=== PATIENT | male | born 1975 | race Caucasian/White ===

== ENCOUNTER 2024-07-17 12:51 | Observation (INO) | payer OTHER ==
[~2024-07-17] VITALS: Ht 172.7 cm; Wt 86.2 kg
[2024-07-17] MEDS ORDERED: TADALAFIL5 MG PO (14:29)
[2024-07-17 14:30] VITALS: BP 120/83; PULSE 65; RESP 18; TEMP 98.4; O2SAT 98
[2024-07-17] MEDS: LACTATED RINGER'S 1,000 ML INJ SCH (14:48)
[2024-07-17] MEDS ORDERED: LISINOPRIL10 MG PO (15:28)
[2024-07-17] MEDS ORDERED: ONDANSETRON ODT4 MG PO (15:28)
[2024-07-17] MEDS ORDERED: ALLOPURINOL100 MG PO (15:28)
[2024-07-17] MEDS ORDERED: ATORVASTATIN CA20 MG PO (15:28)
[2024-07-17] MEDS: ONDANSETRON HCL INJ 2MG/ML 2ML 2 MG/ML VIAL IV PRN (15:35)
[2024-07-17] MEDS: Morphine 4mg INJECTION 4 MG/ML INJ IV PRN (15:42)
[2024-07-17 16:15] VITALS: BP 120/83; PULSE 65; RESP 18; TEMP 98.4; O2SAT 98
[2024-07-17 20:00] VITALS: BP 123/79; PULSE 58; RESP 18; TEMP 98.3; O2SAT 97
[2024-07-17] MEDS: Morphine 2mg Syringe 2 MG/ML SYR IV PRN (22:22)
[2024-07-17 22:45] VITALS: BP 123/79; PULSE 58; RESP 18; TEMP 98.3; O2SAT 97
[2024-07-18] VITALS (8 sets, daily range): BP systolic 97–127; BP diastolic 60–85; PULSE 60–71; RESP 16–18; TEMP 97.9–98.2; O2SAT 95–98
[2024-07-18 06:30] LABS: BASOPHILS % 0.1 % (0.0-1.0); EOSINOPHILS # (AUTO) 0.2 (0.0-0.4); EOSINOPHILS % 2.5 % (0.0-6.0); HEMATOCRIT 42.3 % (38.2-49.6); HEMOGLOBIN 13.6 g/dL (14.0-18.0); LYMPHOCYTES # (AUTO) 1.4 (1.0-3.2); LYMPHOCYTES % 18.7 % (18.0-39.1); MEAN CORPUSCULAR HEMOGLOBIN 31.3 pg (28-32); MEAN CORPUSCULAR HGB CONC 32.2 g/dL (31-35); MEAN CORPUSCULAR VOLUME 97.2 fL (81-99); MONOCYTES # (AUTO) 0.6 (0.2-0.8); MONOCYTES % 8.2 % (4.4-11.3); NEUTROPHILS # (AUTO) 5.3 (2.1-6.9); NEUTROPHILS % 70.2 % (38.7-80.0); PLATELET COUNT 188 x10e3/uL (140-360); RED BLOOD COUNT 4.35 x10e6/uL (4.3-5.7); RED CELL DISTRIBUTION WIDTH 11.9 % (11.7-14.4); WHITE BLOOD COUNT 7.58 x10e3/uL (4.8-10.8)
[2024-07-18 06:55] LABS: ALBUMIN 3.8 g/dL (3.5-5.0); ALBUMIN/GLOBULIN RATIO 1.3 (0.8-2.0); BILIRUBIN,TOTAL 1.1 mg/dL (0.2-1.2); CALCIUM 9.2 mg/dL (8.4-10.2); CREATININE, SERUM 1.19 mg/dL (0.72-1.25); MAGNESIUM 1.8 MG/DL (1.3-2.1); TOTAL PROTEIN 6.8 g/dL (6.5-8.1)
[2024-07-19] VITALS: BP 112/69; PULSE 62; RESP 17; TEMP 97.8; O2SAT 100
[2024-07-19 04:00] VITALS: BP 120/64; PULSE 67; RESP 17; TEMP 97.5; O2SAT 97
[2024-07-19 06:57] LABS: BASOPHILS % 0.4 % (0.0-1.0); EOSINOPHILS # (AUTO) 0.2 (0.0-0.4); EOSINOPHILS % 3.4 % (0.0-6.0); HEMATOCRIT 40.3 % (38.2-49.6); HEMOGLOBIN 13.3 g/dL (14.0-18.0); LYMPHOCYTES # (AUTO) 1.3 (1.0-3.2); LYMPHOCYTES % 23.2 % (18.0-39.1); MEAN CORPUSCULAR HEMOGLOBIN 31.8 pg (28-32); MEAN CORPUSCULAR VOLUME 96.4 fL (81-99); MONOCYTES # (AUTO) 0.4 (0.2-0.8); MONOCYTES % 7.7 % (4.4-11.3); NEUTROPHILS # (AUTO) 3.6 (2.1-6.9); NEUTROPHILS % 64.8 % (38.7-80.0); PLATELET COUNT 180 x10e3/uL (140-360); RED BLOOD COUNT 4.18 x10e6/uL (4.3-5.7); RED CELL DISTRIBUTION WIDTH 11.9 % (11.7-14.4); WHITE BLOOD COUNT 5.55 x10e3/uL (4.8-10.8)
[2024-07-19 07:18] LABS: ALBUMIN 3.6 g/dL (3.5-5.0); ALBUMIN/GLOBULIN RATIO 1.3 (0.8-2.0); ANION GAP 11.1 mmol/L (8-16); BILIRUBIN,TOTAL 0.7 mg/dL (0.2-1.2); CALCIUM 9.3 mg/dL (8.4-10.2); CREATININE, SERUM 1.11 mg/dL (0.72-1.25); POTASSIUM 4.1 mmol/L (3.5-5.1); TOTAL PROTEIN 6.4 g/dL (6.5-8.1)
[2024-07-19 07:46] VITALS: BP 134/72; PULSE 72; RESP 17; TEMP 98.1; O2SAT 99
[2024-07-19 08:00] VITALS: BP 134/72; PULSE 72; RESP 17; TEMP 98.1; O2SAT 99
[2024-07-19 12:00] VITALS: BP 120/83; PULSE 64; RESP 18; TEMP 98.1; O2SAT 100
== END 2024-07-19 14:23 | disposition home or self-care (01) ==
LOC: MED/SURG3 13:46
PROVIDERS: ADMIT Family Medicine; ATTEND Family Medicine
DX: K56.609 Unspecified intestinal obstruction, unspecified as to partial versus complete obstruction (principal); I10 Essential (primary) hypertension; E78.5 Hyperlipidemia, unspecified
CPT/HCPCS: 36415 ×2; 74018; 74019; 80053 ×2; 83735 ×2; 85025 ×2; G0378 ×3; J2270 ×2; J2405; J7121 ×3